=== PATIENT | female | born 1960 | race Caucasian/White ===

== ENCOUNTER 2018-11-08 14:13 | Emergency (ER) | payer MEDICARE, MEDICAID ==
[~2018-11-08] VITALS: Ht 157.5 cm; Wt 107.1 kg
[2018-11-08 17:50] VITALS: BP 128/74
== END 2018-11-08 18:57 | disposition home or self-care (01) ==
LOC: ED 16:05
DX: B34.9 Viral infection, unspecified (principal); J44.9 Chronic obstructive pulmonary disease, unspecified; Z90.710 Acquired absence of both cervix and uterus; F17.200 Nicotine dependence, unspecified, uncomplicated
CPT/HCPCS: 36415; 71046; 76700; 80053; 81001; 83690; 84439; 84443; 84484; 85025; 87086; 93005; 99284; Q0162